=== PATIENT | male | born 1940 | race Caucasian/White ===

== ENCOUNTER 2016-10-01 09:53 | Outpatient (CLI) | payer MEDICARE, OTHER | END 2016-10-01 09:54 | disposition home or self-care (01) | DX: R97.20 Elevated prostate specific antigen [PSA] (principal) ==

== ENCOUNTER 2016-12-20 10:13 | Outpatient (CLI) | payer MEDICARE, OTHER ==
[2016-12-20 10:52] LABS: ALBUMIN/GLOBULIN RATIO 1.5 (1.0-2.2); BASOPHILS # (AUTO) 0.1 10^3/uL (0.0-0.1); BASOPHILS % (AUTO) 0.8 %; BUN - BLOOD UREA NITROGEN 16 mg/dL (6-20); CALCIUM 9.3 mg/dL (8.5-10.3); CARBON DIOXIDE - CO2 24 mmol/L (21-32); CHLORIDE 105 mmol/L (101-111); CHOL/HDL RATIO 3.4 (<5.0); CHOLESTEROL 137 mg/dL; CREATININE 1.2 mg/dL (0.6-1.2); EOSINOPHILS # (AUTO) 0.3 10^3/uL (0.0-0.7); EOSINOPHILS % (AUTO) 3.2 %; GFR - MDRD 59 (>89); GLUCOSE 165 mg/dL (70-100); HCT - HEMATOCRIT 43.8 % (42.0-52.0); HDL CHOLESTEROL 40 mg/dL; HGB - HEMOGLOBIN 14.5 g/dL (14.0-18.0); LDL/HDL RATIO 1.7 (<3.6); LYMPHOCYTES # (AUTO) 2.1 10^3/uL (1.5-3.5); LYMPHOCYTES % (AUTO) 23.8 %; MEAN CORPUSCULAR HEMOGLOBIN 30.1 pg (27.0-31.0); MEAN CORPUSCULAR HGB CONC 33.1 g/dL (32.0-36.0); MEAN CORPUSCULAR VOLUME 91.1 fL (80.0-94.0); MEAN PLATELET VOLUME 7.5 fL (7.4-11.4); MONOCYTES # (AUTO) 0.7 10^3/uL (0.0-1.0); MONOCYTES % (AUTO) 8.4 %; NEUTROPHILS # (AUTO) 5.6 10^3/uL (1.5-6.6); NEUTROPHILS % (AUTO) 63.8 %; POTASSIUM 4.2 mmol/L (3.5-5.0); RED BLOOD COUNT 4.81 10^6/uL (4.70-6.10); RED CELL DISTRIBUTION WIDTH 14.2 % (12.0-15.0); SODIUM 139 mmol/L (135-145); TOTAL PROTEIN 6.9 g/dL (6.7-8.2); TRIGLYCERIDES 143 mg/dL; UNCORRECTED WHITE BLOOD COUNT 8.8 x10^3/uL; VLDL CHOLESTEROL 29 mg/dL; WHITE BLOOD COUNT 8.8 x10^3/uL (4.8-10.8)
[2016-12-20 11:13] LABS: HEMOGLOBIN A1C 0.77 g/dL
== END 2016-12-20 10:14 | disposition home or self-care (01) ==
LOC: LAB 10:13
PROVIDERS: ATTEND Internal Medicine
DX: E78.2 Mixed hyperlipidemia (principal); Z79.899 Other long term (current) drug therapy; R73.09 Other abnormal glucose
CPT/HCPCS: 36415; 80053; 80061; 83036; 85025

== ENCOUNTER 2017-04-10 09:55 | Outpatient (CLI) | payer MEDICARE, OTHER ==
[2017-04-10 10:17] LABS: HEMOGLOBIN A1C 0.85 g/dL
[2017-04-10 10:48] LABS: PSA FREE 1.474 ng/mL (0.16-2.81)
[2017-04-10 10:49] LABS: PSA TOTAL 5.792 ng/mL (0.000-2.000)
== END 2017-04-10 09:56 | disposition home or self-care (01) ==
LOC: LAB 09:55
PROVIDERS: ATTEND Internal Medicine
DX: Z87.898 Personal history of other specified conditions (principal); E11.9 Type 2 diabetes mellitus without complications; R89.9 Unspecified abnormal finding in specimens from other organs, systems and tissues
CPT/HCPCS: 36415; 83036; 84154

== ENCOUNTER 2017-11-24 12:57 | Outpatient (CLI) | payer MEDICARE, OTHER ==
[2017-11-24 13:25] LABS: BASOPHILS % (AUTO) 0.6 %; EOSINOPHILS # (AUTO) 0.2 10^3/uL (0.0-0.7); HGB - HEMOGLOBIN 14.9 g/dL (14.0-18.0); LYMPHOCYTES # (AUTO) 1.8 10^3/uL (1.5-3.5); LYMPHOCYTES % (AUTO) 23.3 %; MEAN CORPUSCULAR HEMOGLOBIN 30.7 pg (27.0-31.0); MEAN CORPUSCULAR HGB CONC 33.6 g/dL (32.0-36.0); MEAN CORPUSCULAR VOLUME 91.5 fL (80.0-94.0); MEAN PLATELET VOLUME 6.7 fL (7.4-11.4); MONOCYTES # (AUTO) 0.7 10^3/uL (0.0-1.0); MONOCYTES % (AUTO) 8.8 %; NEUTROPHILS # (AUTO) 4.9 10^3/uL (1.5-6.6); NEUTROPHILS % (AUTO) 64.3 %; PLT - PLATELET COUNT 312 10^3/uL (130-450); RED BLOOD COUNT 4.84 10^6/uL (4.70-6.10); RED CELL DISTRIBUTION WIDTH 13.8 % (12.0-15.0); WHITE BLOOD COUNT 7.6 x10^3/uL (4.8-10.8)
[2017-11-24 13:39] LABS: HB2 TOTAL 16.5 g/dL; HEMOGLOBIN A1C 0.78 g/dL; HEMOGLOBIN A1C % 6.5 % (4.6-6.2)
[2017-11-24 14:08] LABS: ALBUMIN 4.3 g/dL (3.2-5.5); ALBUMIN/GLOBULIN RATIO 1.5 (1.0-2.2); ALKALINE PHOSPHATASE 55 IU/L (42-121); ALT ALANINE AMINOTRANSFERASE 20 IU/L (10-60); AST ASPARTATE AMINOTRANSFERASE 22 IU/L (10-42); BILIRUBIN,TOTAL 0.9 mg/dL (0.2-1.0); BUN - BLOOD UREA NITROGEN 20 mg/dL (6-20); CALCIUM 9.2 mg/dL (8.5-10.3); CARBON DIOXIDE - CO2 26 mmol/L (21-32); CHLORIDE 101 mmol/L (101-111); CHOL/HDL RATIO 3.9 (<5.0); CHOLESTEROL 152 mg/dL; CREATININE 1.1 mg/dL (0.6-1.2); GFR - MDRD 65 (>89); GLUCOSE 120 mg/dL (70-100); HDL CHOLESTEROL 39 mg/dL; LDL CHOLESTEROL,CALCULATED 77 mg/dL; SODIUM 134 mmol/L (135-145); TOTAL PROTEIN 7.1 g/dL (6.7-8.2); URIC ACID 5.9 mg/dL (2.6-7.2); VLDL CHOLESTEROL 36 mg/dL
[2017-11-24 14:27] LABS: PSA FREE 1.33 ng/mL (0.16-2.81)
[2017-11-24 14:28] LABS: PSA TOTAL 5.73 ng/mL (0.000-2.000)
== END 2017-11-24 12:58 | disposition home or self-care (01) ==
LOC: LAB 12:57
PROVIDERS: ATTEND Internal Medicine
DX: R97.20 Elevated prostate specific antigen [PSA] (principal); E11.9 Type 2 diabetes mellitus without complications; Z87.898 Personal history of other specified conditions; L40.9 Psoriasis, unspecified; M1A.9XX0 Chronic gout, unspecified, without tophus (tophi); I10 Essential (primary) hypertension; E78.5 Hyperlipidemia, unspecified
CPT/HCPCS: 36415; 80053; 80061; 83036; 83721; 84154; 84550; 85025

== ENCOUNTER 2018-06-24 11:38 | Outpatient (CLI) | payer MEDICARE, OTHER ==
[2018-06-24 14:06] LABS: HB2 TOTAL 15.9 g/dL; HEMOGLOBIN A1C 0.69 g/dL; HEMOGLOBIN A1C % 6.1 % (4.6-6.2)
[2018-06-24 14:24] LABS: PSA FREE 1.22 ng/mL (0.16-2.81)
== END 2018-06-24 11:39 | disposition home or self-care (01) ==
LOC: LAB 11:38
PROVIDERS: ATTEND Internal Medicine
DX: E11.9 Type 2 diabetes mellitus without complications (principal); R97.20 Elevated prostate specific antigen [PSA]
CPT/HCPCS: 36415; 82947; 83036; 84153; 84154

== ENCOUNTER 2021-09-13 08:00 | Outpatient (CLI) | payer MEDICARE, OTHER ==
[2021-09-13 16:24] LABS: BASOPHILS # (AUTO) 0.1 10^3/uL (0.0-0.1); BASOPHILS % (AUTO) 0.9 %; EOSINOPHILS # (AUTO) 0.3 10^3/uL (0.0-0.7); EOSINOPHILS % (AUTO) 4.8 %; HCT - HEMATOCRIT 45.2 % (42.0-52.0); HGB - HEMOGLOBIN 14.6 g/dL (14.0-18.0); LYMPHOCYTES # (AUTO) 1.7 10^3/uL (1.5-3.5); LYMPHOCYTES % (AUTO) 24.2 %; MEAN CORPUSCULAR HEMOGLOBIN 29.9 pg (27.0-31.0); MEAN CORPUSCULAR HGB CONC 32.3 g/dL (32.0-36.0); MEAN CORPUSCULAR VOLUME 92.6 fL (80.0-94.0); MEAN PLATELET VOLUME 9.4 fL (7.4-11.4); MONOCYTES # (AUTO) 0.6 10^3/uL (0.0-1.0); NEUTROPHILS # (AUTO) 4.3 10^3/uL (1.5-6.6); NEUTROPHILS % (AUTO) 61.7 %; PLT - PLATELET COUNT 308 10^3/uL (130-450); RED BLOOD COUNT 4.88 10^6/uL (4.70-6.10)
[2021-09-13 16:36] LABS: BILIRUBIN,URINE NEGATIVE (NEGATIVE); GLUCOSE, URINE (UA) NEGATIVE (NEGATIVE); KETONES,URINE (UA) NEGATIVE (NEGATIVE); LEUKOCYTE ESTERASE, URINE NEGATIVE (NEGATIVE); NITRITE,URINE NEGATIVE (NEGATIVE); OCCULT BLOOD,URINE NEGATIVE (NEGATIVE); PH,URINE 5.5 PH (5.0-7.5); PROTEIN,URINE NEGATIVE (NEGATIVE); UROBILINOGEN,URINE 0.2 (NORMAL) E.U./dL (NORMAL)
[2021-09-13 16:40] LABS: CLARITY,URINE CLEAR (CLEAR)
[2021-09-13 16:41] LABS: CREATININE,URINE 67.6 mg/dL; MICROALBUM/CREATININE RATIO,UR 19.2 ug/mg (<30.0); MICROALBUMIN,URINE 1.3 mg/dL (0-300.0)
[2021-09-13 16:44] LABS: ALBUMIN 4.5 g/dL (3.2-5.5); ALBUMIN/GLOBULIN RATIO 1.5 (1.0-2.2); ALKALINE PHOSPHATASE 77 IU/L (42-121); ALT ALANINE AMINOTRANSFERASE 18 IU/L (10-60); AST ASPARTATE AMINOTRANSFERASE 19 IU/L (10-42); BILIRUBIN,TOTAL 0.5 mg/dL (0.2-1.0); BUN - BLOOD UREA NITROGEN 19 mg/dL (6-20); CALCIUM 9.4 mg/dL (8.5-10.3); CARBON DIOXIDE - CO2 26 mmol/L (21-32); CHLORIDE 103 mmol/L (101-111); CHOL/HDL RATIO 4.9 (<5.0); CHOLESTEROL 185 mg/dL; CK- CREATINE KINASE 105 IU/L (22-269); GFR - MDRD 72 (>89); GLUCOSE 137 mg/dL (70-100); HDL CHOLESTEROL 38 mg/dL; LDL CHOLESTEROL,CALCULATED 110 mg/dL; LDL/HDL RATIO 2.9 (<3.6); POTASSIUM 3.9 mmol/L (3.5-5.0); SODIUM 139 mmol/L (135-145); TOTAL PROTEIN 7.5 g/dL (6.7-8.2); TRIGLYCERIDES 183 mg/dL; URIC ACID 5.2 mg/dL (2.6-7.2); VLDL CHOLESTEROL 37 mg/dL
[2021-09-14 15:18] LABS: ESTIMATED AVERAGE GLUCOSE 157 mg/dL (70-100); HEMOGLOBIN A1c% 7.1 % (4.27-6.07)
== END 2021-09-13 23:59 | disposition home or self-care (01) ==
LOC: LAB.R 08:00
PROVIDERS: ATTEND Internal Medicine
DX: I48.91 Unspecified atrial fibrillation (principal); N40.0 Benign prostatic hyperplasia without lower urinary tract symptoms; E11.9 Type 2 diabetes mellitus without complications; M10.9 Gout, unspecified; L40.9 Psoriasis, unspecified; Z13.6 Encounter for screening for cardiovascular disorders; Z79.899 Other long term (current) drug therapy
CPT/HCPCS: 80053; 80061; 81001; 81003; 82043; 82306; 82550; 82570; 83036; 83721; 84443; 84550; 85025; 87086

== ENCOUNTER 2022-05-29 08:00 | Outpatient (CLI) | payer MEDICARE, OTHER ==
[2022-05-29 16:17] LABS: BASOPHILS # (AUTO) 0.1 10^3/uL (0.0-0.1); BASOPHILS % (AUTO) 0.9 %; EOSINOPHILS # (AUTO) 0.3 10^3/uL (0.0-0.7); EOSINOPHILS % (AUTO) 3.5 %; HCT - HEMATOCRIT 44.9 % (42.0-52.0); HGB - HEMOGLOBIN 14.2 g/dL (14.0-18.0); LYMPHOCYTES # (AUTO) 1.6 10^3/uL (1.5-3.5); MEAN CORPUSCULAR HEMOGLOBIN 29.4 pg (27.0-31.0); MEAN CORPUSCULAR HGB CONC 31.6 g/dL (32.0-36.0); MEAN PLATELET VOLUME 9.2 fL (7.4-11.4); MONOCYTES # (AUTO) 0.7 10^3/uL (0.0-1.0); MONOCYTES % (AUTO) 7.8 %; NEUTROPHILS # (AUTO) 5.9 10^3/uL (1.5-6.6); NEUTROPHILS % (AUTO) 68.3 %; PLT - PLATELET COUNT 333 10^3/uL (130-450); RED BLOOD COUNT 4.83 10^6/uL (4.70-6.10); RED CELL DISTRIBUTION WIDTH 13.1 % (12.0-15.0); WHITE BLOOD COUNT 8.6 x10^3/uL (4.8-10.8)
[2022-05-29 16:30] LABS: ALBUMIN 4.1 g/dL (3.2-5.5); ALBUMIN/GLOBULIN RATIO 1.4 (1.0-2.2); ALKALINE PHOSPHATASE 74 IU/L (42-121); ALT ALANINE AMINOTRANSFERASE 17 IU/L (10-60); AST ASPARTATE AMINOTRANSFERASE 18 IU/L (10-42); BILIRUBIN,TOTAL 0.6 mg/dL (0.2-1.0); BUN - BLOOD UREA NITROGEN 15 mg/dL (6-20); CALCIUM 9.4 mg/dL (8.5-10.3); CARBON DIOXIDE - CO2 26 mmol/L (21-32); CHLORIDE 105 mmol/L (101-111); CHOL/HDL RATIO 4.3 (<5.0); CHOLESTEROL 158 mg/dL; CREATININE 1.1 mg/dL (0.6-1.2); GFR - MDRD 65 (>89); GLUCOSE 127 mg/dL (70-100); HDL CHOLESTEROL 37 mg/dL; LDL CHOLESTEROL,CALCULATED 93 mg/dL; LDL/HDL RATIO 2.5 (<3.6); POTASSIUM 4.2 mmol/L (3.5-5.0); SODIUM 137 mmol/L (135-145); TRIGLYCERIDES 142 mg/dL; VLDL CHOLESTEROL 28 mg/dL
[2022-05-29 16:31] LABS: CREATININE,URINE 87.7 mg/dL; MICROALBUM/CREATININE RATIO,UR 12.5 ug/mg (<30.0); MICROALBUMIN,URINE 1.1 mg/dL (0-300.0)
[2022-05-29 16:40] LABS: THYROID STIMULATING HORMONE 1.36 uIU/mL (0.34-5.60)
[2022-05-29 20:42] LABS: ESTIMATED AVERAGE GLUCOSE 157 mg/dL (70-100); HEMOGLOBIN A1c% 7.1 % (4.27-6.07)
== END 2022-05-29 23:59 | disposition home or self-care (01) ==
LOC: LAB.R 08:00
PROVIDERS: ATTEND Internal Medicine
DX: Z00.00 Encounter for general adult medical examination without abnormal findings (principal); E11.9 Type 2 diabetes mellitus without complications; I48.91 Unspecified atrial fibrillation; M10.9 Gout, unspecified; N40.0 Benign prostatic hyperplasia without lower urinary tract symptoms; L40.9 Psoriasis, unspecified; Z79.899 Other long term (current) drug therapy
CPT/HCPCS: 80053; 80061; 82043; 82306; 82570; 82607; 83036; 83721; 84443; 84550; 85025

== ENCOUNTER 2023-03-13 08:26 | Outpatient (CLI) | payer MEDICARE, OTHER | END 2023-03-13 08:27 | disposition home or self-care (01) | LOC: LAB 08:26 | PROVIDERS: ATTEND Urology | DX: R97.20 Elevated prostate specific antigen [PSA] (principal) | CPT/HCPCS: 36415; G0103; 84153 ==

== ENCOUNTER 2023-05-08 09:53 | Outpatient (CLI) | payer MEDICARE, OTHER ==
--- NOTE | 2023-05-08 10:42 | Sleep Patient Instructions ---
Sleep Center Visit Summary - Patient Visit Information Reason for Visit: Initial consult for evaluation of sleep disordered breathing and other sleep issues. - Patient Instructions Instructions Attached: Sleep Study Additional Instructions: You will be completing a sleep study, either an in-lab polysomnography (PSG) or home sleep study (HST). You will follow-up in the sleep care office after the sleep study is completed to hear the results and talk about therapy, if needed. You will be called by our office staff to schedule this appointment, but you may contact us with any questions. - Clinic Information Contact: [facility] [address] [place] [address] [email or web address] T: [phone]
--- NOTE | 2023-05-08 10:45 | SLEEP CARE CONSULTATION ---
Information from patient questionnaire entered by Roya Borrego. I have reviewed and concur with the information entered by Roya Borrego. This document represents the service I personally performed and the decisions made by me, Miya Alejandra ARNP. History of Present Illness Service Date and Time: 05/08/2023 0953 Reason for Visit: New patient Chief Complaint: reports: Unrefreshed sleep, Fatigue Date of Onset: 5YRS Usual bedtime: 10PM Time it takes to fall asleep: 5MIN Snores at night: Yes Observed to quit breathing while asleep: No Sleeps alone due to snoring: No Number of times waking at night: 2 Reasons for waking at night: reports: Bathroom. denies: Choking, Gasping for air Toss, Turn, or Twitch while sleeping: No Recalls having dreams: Yes (has task oriented dreams) Usually gets out of bed at: 6AM Feels refreshed in the morning: No Morning headache: No Sleepy or fatigued during the day: Yes Ever fallen asleep while driving: Yes (years ago, not in 15-20 years) Takes day naps: Yes (1 hour nearly every day) Dreams during day naps: Yes Prior sleep studies: No Additional HPI information: I had the pleasure of seeing ALEYDA VALENCIA today regarding the possibility of him having a sleep disorder. His current complaints are unrefreshed sleep and fatigue. 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 He has a history of atrial fibrillation and atrial flutter. He has had 2 ablations with improvement of his arrhythmia. He does have some daytime fatigue and likes to take naps. He can go to sleep easily and will wake up a few times at night. He says he is tired "all the time" and does not wake up feeling rested. He has been told he snores softly according to . - Parasomnia Symptoms Ever been unable to move upon waking from sleep: No Walks in sleep: No Talks in sleep: No Ever acted out dreams in sleep: No Ever felt weak in the knees when startled or emotional: No Bothered by creepy, crawly, restless sensations in legs: No Problems with memory or concentration: Yes (short term memory) Subjective Initial [place] Sleepiness Scale score: 6 (04/15/23) Past Medical History Past Medical History: reports: Hypertension, Diabetes, Gout, Arrythmia (Atrial fibrillation and AFlutter with 2 ablations), Other (Autoimmune deficiency; Psoriasis) Social History The patient's occupation is a RE. Patient is and lives in [place]. Have you smoked in the past 12 months: No Alcohol use: No Caffeine use: No Family History Family history of sleep disordered breathing: No Allergies and Home Medications Known drug allergies: Yes ( LISTED) Drug allergies reviewed: Yes Home medication list reviewed: Yes Allergy and home medication list: Allergies Penicillins Adverse Reaction (Verified 05/07/23 08:59) Unknown causes intestinal bleeding Ampecillin Medications: Allopurinol 300 mg 1 per day Lisinopril 40 mg daily Betamethasone ointment Lovastatin 10 mg daily Metformin 500 mg 2 per day Lantus 24 units per day Vitamin D 1000 units per day Flomax 0.4 mg daily Review of Systems Weight gain over past 5 years: 5 Cardiovascular: reports: high blood pressure, irregular heart rate or pulse Gastrointestinal: denies: heartburn Neurological: denies: headaches Psychiatric: denies: anxiety, depression Ear/Nose/Throat: reports: tonsillectomy Endocrine: denies: thyroid disease Immunologic: reports: sneezing, rash Physical Exam Vital signs obtained and entered by: MIYA ORTIZ-Ryanne Blood Pressure: 125/80 Cuff size: wrist (right) Heart Rate: 92 O2 Saturation: 99 Height: 5 ft 11 in Weight: 200 lb Body Mass Index: 27.8 BMI Classification: Overweight Neck circumference: 16.5 Mouth and throat: narrow oropharynx Soft palate: long Hard palate: normal Uvula: normal Uvula visualization: 0% Mallampati Class IV Tongue: enlarged in size with teeth hollins on lateral edges Tonsils: absent bilaterally Neck: normal w/o lymphadenopathy or thyromegaly Heart: irregular rhythm Lungs: clear bilaterally Impression and Plan 1. Suspected Obstructive Sleep Apnea-Hypopnea Syndrome, as suggested by a history of irregular snoring, unrefreshed sleep and cognitive impairment. Narrow oropharynx and obesity are common predisposing factors for obstructive sleep apnea-hypopnea syndrome. I recommend proceeding to polysomnography to confirm the diagnosis and to assess severity. If the patient has significant sleep disordered breathing, a manual CPAP titration study will also be performed to find the optimal treatment pressure. I informed the patient of what the sleep studies involve and after some discussion, obtained agreement to proceed. The pathophysiology of obstructive sleep apnea-hypopnea syndrome was discussed with the patient and health risks of cardiovascular and cerebrovascular disease if not treated. Risks of drowsy driving discussed in detail and patient advised to avoid long distance driving and to casing puller at the first sign of drowsiness. Patient agreed to plan. * Schedule polysomnography. * Avoid long distance driving or driving when feeling sleepy. * Avoid alcohol, sedative and muscle relaxant around bedtime. * Attempt to lose weight. * Review instructions provided by trained office staff on how to prepare for the sleep study. * Return for follow-up after sleep study completed. Counseling Topics: Weight loss health impact Plan: PSG/HST Visit Type: In Office Time Spent with Patient (minutes): 30 Provider Statement: I spent 100% of the Face to Face Visit with the patient with greater than 50% spent counseling the patient and coordination of care.
[2023-05-08 10:52] VITALS: BP 125/80; O2SAT 99
== END 2023-05-08 09:54 | disposition home or self-care (01) ==
LOC: SC 09:53
PROVIDERS: ATTEND Nurse Practitioner Family
DX: G47.8 Other sleep disorders (principal); R06.83 Snoring; R41.89 Other symptoms and signs involving cognitive functions and awareness; E66.3 Overweight; Z68.27 Body mass index [BMI] 27.0-27.9, adult; R53.83 Other fatigue; Z86.79 Personal history of other diseases of the circulatory system
CPT/HCPCS: 99203; G0463; 99212

== ENCOUNTER 2023-05-26 20:22 | Outpatient (CLI) | payer MEDICARE, OTHER | END 2023-05-26 20:23 | disposition home or self-care (01) | LOC: SC 20:22 | PROVIDERS: ATTEND Nurse Practitioner Family | DX: G47.33 Obstructive sleep apnea (adult) (pediatric) (principal); G47.61 Periodic limb movement disorder | CPT/HCPCS: 95810 ==

== ENCOUNTER 2023-06-04 15:29 | Outpatient (CLI) | payer MEDICARE, OTHER ==
--- NOTE | 2023-06-04 15:54 | Sleep Patient Instructions ---
Sleep Center Visit Summary - Patient Visit Information Reason for Visit: Sleep study followup - Patient Instructions Additional Instructions: You are to start Positional therapy to control your sleep apnea. You may obtain positional belts or other commercial devices online. You may also use pillows to position yourself on your side or a T shirt with balls sewn into the back to help keep you on your side to sleep. We would like to follow up with you in a month to check effectiveness of therapy. Please call office to schedule a follow up appointment in the sleep care office in 1-2 months. - Clinic Information Contact: [facility] [address] [place] [address] [email or web address] T: [phone]
--- NOTE | 2023-06-04 15:58 | SLEEP CARE CONSULTATION ---
Information from patient questionnaire entered by Roya Borrego. I have reviewed and concur with the information entered by Roya Borrego. This document represents the service I personally performed and the decisions made by me, Miya Alejandra ARNP. History of Present Illness Service Date and Time: 06/04/20231528 Initial [place] Sleepiness Scale score: 6 (04/15/23) Current [place] Sleepiness Scale score: 4 (06/04/23) Additional HPI information: ALEYDA VALENCIA returns for follow up and results of the recently performed polysomnography. The sleep study showed mild obstructive sleep apnea with an average AHI of 11.1 and alize oxygen saturation of 85%. He also had severe PLMs contributing to sleep fragmentation. I explained the pathophysiology behind obstructive sleep apnea. We then spent quite a bit of time discussing different treatment options. For mild obstructive sleep apnea, surgery and oral appliance are alternatives to nasal CPAP therapy but in moderate or severe cases, nasal CPAP is the most effective and reliable treatment. Because apnea is primarily in supine position, then positional management therapy could be effective. Methods discussed such as positioning with pillows, using a T-shirt with tennis balls in the back or commercial products that have a pillow format on back to prevent supine sleep. I reviewed the impact of weight changes on sleep apnea and strongly recommended losing weight. After some discussion, the patient opted to go with positional therapy. I strongly advised trying the CPAP but he wants to try the positional therapy and also consult his doctor. Patient was cautioned about risks of drowsy driving until sleepiness symptoms resolve. Patient denies drowsy driving. Sleep Study - Results Type of Sleep Study: Polysomnography (COMPLETED 05/26/23) Prior sleep studies: No Polysomnography/Home Sleep Study results: IMPRESSION: The quality of the study is good. The patient had reduced sleep efficiency due to sleep onset insomnia and a prolonged awakening in the middle of the night. The sleep architecture was abnormal for sleep fragmentation and reduced amount of time spent in REM and slow wave sleep (N3). Respiratory monitoring showed mild obstructive sleep apnea-hypopnea (AHI = 11.1) associated with frequent arousals, oxyhemoglobin desaturation and mild hypoxia (alize oxygen saturation of 85%). The respiratory events occurred almost exclusively during supine sleep (supine AHI = 19.8; non-supine = 0.48). Snore was light in intensity. There was severe periodic leg movement of sleep contributing to the sleep fragmentation. Cardiac rhythm appeared to be normal sinus rhythm.. No abnormal behavior (parasomnia) observed during the night. Allergies and Home Medications Known drug allergies: Yes (penicillins) Drug allergies reviewed: Yes Home medication list reviewed: Yes (no changes) Allergy and home medication list: Allergies Penicillins Adverse Reaction (Verified 06/03/23 11:47) Unknown causes intestinal bleeding Review of Systems Review of systems same as previous: Yes (NO CHANGE) Physical Exam Vital signs obtained and entered by: ROYA Pearl MA Blood Pressure: 139/79 (LEFT ARM) Cuff size: regular Heart Rate: 90 O2 Saturation: 99 Height: 5 ft 11 in Weight: 202 lb 12.8 oz Body Mass Index: 28.3 BMI Classification: Overweight Impression and Plan 1. Obstructive Sleep Apnea-Hypopnea Syndrome, mild, with lowest oxygen saturation of 85%. Obviously this is the cause of the patients symptoms of unrefreshed sleep, and excessive daytime sleepiness. Positive pressure therapy could benefit hypertension, diabetes and arrhythmia. Since patients apnea is primarily in supine position, patient could try positional therapy and he agreed with plan. He is also advised to lose weight as this will reduce snoring and apnea. Follow up is scheduled for one month to check effectiveness and if further evaluation indicated such a repeat study in supine position only to see if additional treatment indicated. 2. Periodic limb movement, severe, that did contribute to fragmentation of the patients sleep. Periodic limb movement of sleep (PLMS) is characterized by episodes of repetitive limb movements that occur during sleep and usually involve the lower limbs. The etiology is unknown but can be associated with rest less leg syndrome (RLS), neuropathy, spinal cord diseases, kidney disease, rheumatological disorders, narcolepsy, obstructive sleep apnea, and REM sleep behavior disorder. Caffeine can also aggravate PLMS and should be avoided. Sleep hygiene methods can also improve sleep as well as lifestyle changes such as regular exercise. Patient was advised that no treatment is needed at this time. If symptoms increase, then further evaluation is indicated. * Positional therapy. * Attempt to lose weight. * Avoid supine sleep * The patient is again cautioned about driving until sleepiness completely resolves. * Return in one month. I will assess response to therapy at that time. Counseling Topics: Sleeping position, Weight loss health impact Follow up with Sleep Care in: 1-2 months (for Positional therapy followup) Visit Type: In Office Time Spent with Patient (minutes): 20 Provider Statement: I spent 100% of the Face to Face Visit with the patient with greater than 50% spent counseling the patient and coordination of care.
[2023-06-04 16:03] VITALS: BP 139/79; O2SAT 99
== END 2023-06-04 15:30 | disposition home or self-care (01) ==
LOC: SC 15:29
PROVIDERS: ATTEND Nurse Practitioner Family
DX: G47.33 Obstructive sleep apnea (adult) (pediatric) (principal); G47.61 Periodic limb movement disorder; E66.3 Overweight; Z68.28 Body mass index [BMI] 28.0-28.9, adult
CPT/HCPCS: 99213; G0463; 99212

== ENCOUNTER 2023-07-29 09:41 | Outpatient (CLI) | payer MEDICARE, OTHER ==
--- NOTE | 2023-07-29 10:56 | Sleep Patient Instructions ---
Sleep Center Visit Summary - Patient Visit Information Reason for Visit: Follow-up positional therapy - Patient Instructions Additional Instructions: You were here for follow up of Positional therapy. You will be continued on positional therapy. You should follow up with sleep care in 3 months. You may contact us sooner for any questions or concerns. - Clinic Information Contact: [facility] [address] [place] [id number] [email or web address] T: [phone]
--- NOTE | 2023-07-29 11:00 | SLEEP CARE CONSULTATION ---
Information from patient questionnaire entered by Roya Borrego. I have reviewed and concur with the information entered by Roya Borrego. This document represents the service I personally performed and the decisions made by me, Miya Alejandra ARNP. History of Present Illness Service Date and Time: 07/29/2023 0941 Previous diagnosis: Mild, Obstructive Sleep Apnea-Hypopnea Syndrome AHI: 11.1 (in 05/2023) Reason for follow up: other (6WEEK POSSITIONAL F/U) Prior sleep studies: No Type of Sleep Study: Polysomnography (COMPLETED 05/26/23) HPI additional information: ALEYDA VALENCIA was diagnosed to have mild, AHI 11.1, obstructive sleep apnea- hypopnea syndrome and returned today for positional therapy six week follow-up. Sleep Study - Results Type of Sleep Study: Polysomnography (COMPLETED 05/26/23) Prior sleep studies: No CPAP Compliance Data Compliance data discussion: He is sleeping on his side mostly with no problems. He is not currently using pillows or positional belts. Subjective On therapy, patient: reports: sleeping better, awakening more refreshed, being more awake and alert during the day, more rested overall. denies: drowsiness while driving Initial [place] Sleepiness Scale score: 6 (04/15/23) Current [place] Sleepiness Scale score: 3 Allergies and Home Medications Known drug allergies: Yes (penicillins) Drug allergies reviewed: Yes Home medication list reviewed: Yes (no changes) Allergy and home medication list: Allergies Penicillins Adverse Reaction (Verified 07/25/23 13:37) Unknown causes intestinal bleeding Review of Systems Review of systems same as previous: Yes (no changes) Physical Exam Vital signs obtained and entered by: MIYA TREJO Blood Pressure: 121/72 Cuff size: regular (right arm) Heart Rate: 94 O2 Saturation: 98 Height: 5 ft 11 in Weight: 201 lb 6.4 oz Body Mass Index: 28.0 BMI Classification: Overweight Impression and Plan 1. Obstructive Sleep Apnea-Hypopnea Syndrome, mild. On positional therapy, the patient has better sleep quality and is more rested overall. He states is going well and he is able to stay on his sides for most of the night. He will have a time that he will turn on his back for stretching of his back and then go back to his sides. He feels he is waking up feeling refreshed and has good sleep quality. He feels that positional therapy is sustainable. He states that he will soon be following up with his administrative services coordinator. I explained to him that normally I do recommend he be on a CPAP machine but it looks like he is doing well. After his follow-up with cardiology, he may let us know if he needs to do any changes in his therapy. He voiced understanding and agreement with this plan. Patient's apnea severity and rationale for treatment to reduce apnea, improve sleep quality and reduce cardiovascular and cerebrovascular events was reviewed. He has a history of hypertension, diabetes and arrhythmia. 2. Overweight, unspecified. Currently patients BMI is 28. Obesity increases the risk of apnea and overall health risks especially cardiovascular and diabetes. Thus patient is advised to continue to try to lose weight. * Continue positional therapy * Continue to try to lose weight * Call this office if any problems * Return for follow up in 3 months, or sooner if concerns arise Counseling Topics: Weight loss health impact Follow up with Sleep Care in: 3 months (for postional therapy) Visit Type: In Office Time Spent with Patient (minutes): 17 Provider Statement: I spent 100% of the Face to Face Visit with the patient with greater than 50% spent counseling the patient and coordination of care.
[2023-07-29 11:02] VITALS: BP 121/72; O2SAT 98
== END 2023-07-29 09:42 | disposition home or self-care (01) ==
LOC: SC 09:41
PROVIDERS: ATTEND Nurse Practitioner Family
DX: G47.33 Obstructive sleep apnea (adult) (pediatric) (principal); E66.3 Overweight; Z68.28 Body mass index [BMI] 28.0-28.9, adult
CPT/HCPCS: 99212; G0463

== ENCOUNTER 2023-08-27 10:38 | Outpatient (CLI) | payer MEDICARE, OTHER | END 2023-08-27 10:39 | disposition home or self-care (01) | LOC: LAB 10:38 | PROVIDERS: ATTEND Urology | DX: R97.20 Elevated prostate specific antigen [PSA] (principal) | CPT/HCPCS: 36415; 84153 ==